=== PATIENT | male | born 1970 ===

== ENCOUNTER 2025-02-21 06:57 | Outpatient (CLI) | payer OTHER ==
[2025-02-21 07:49] LABS: BASO % 0.7 % (0.1-1.2); EOS # 0.13 (0.04-0.54); EOS % 1.8 % (0.7-7.0); LYMPH # 3.09 (1.18-3.74); LYMPH % 42.3 % (19.3-53.1); MEAN PLATELET VOLUME 9.40 fl (9.4-12.4); MONO # 0.73 (0.24-0.82); MONO % 10.0 % (4.7-12.5); NEUT # 3.29 (1.56-6.13); NEUT % 45.1 % (34.0-71.1); RED CELL DISTRIBUTION WIDTH 13.3 % (11.6-14.4)
[2025-02-21 07:57] LABS: URINE APPEARANCE Clear; URINE BILIRRUBIN Negative (NEGATIVE); URINE BLOOD Negative; URINE COLOR Dark Yellow; URINE GLUCOSE Negative (NEGATIVE); URINE LEUKOCYTE Negative; URINE NITRATE Negative; URINE PROTEIN Trace (NEGATIVE); URINE UROBILINOGEN 1.0 E.U./dl
[2025-02-21 08:00] LABS: URINE BACTERIA 53.7 uL (0.0-1933); URINE EPITHELIAL CELLS 5.9 uL (0.0-38.8); URINE WBC 5.8 uL (0.0-23.2)
[2025-02-21 08:09] LABS: URINE CAST 0.56 uL (0.0-1.40); URINE KETONE 40 (NEGATIVE); URINE RBC 1.6 uL (0.0-20.8)
[2025-02-21 08:36] LABS: ALT/SGPT 49.0 U/L (12-78); AST/SGOT 37.0 U/L (15-37); BILIRUBIN TOTAL 0.63 mg/dL (0.3-1.2); BUN CREA RATIO 21.0 (7.0-25.0); CHOL HDL RATIO 4.8 (0-5.0); CREATININE SERUM 0.75 mg/dL (0.70-1.30); GFR 107.34; GLOBULINA 3.1 G/DL (2.4-3.5); GLUCOSE FASTING 92.0 mg/dL (65-100); HDL 44.0 mg/dl (40-60); LDL 148.0 mg/dl (0-130); OSMOLALITY SERUM 284.0 MOSM/KG (275-295); PROSTATIC SPECIFIC ANTIGEN 0.248 NG/ML (0.010-4.00); T4 FREE 0.96 NG/ML (0.76-1.46); TSH 1.16 uIU/mL (0.358-3.74); VLDL 20.0 (0-39)
[2025-02-21 11:54] LABS: VITAMIN D3 25 HYDROXY 37.77 ng/ml (30-120)
[2025-02-22 12:07] LABS: hav igm Negative (Negative); hep b c Negative (Negative); hep b s ag Negative (Negative)
[2025-02-23 16:07] LABS: T T 530 ng/dL (264-916); test free 9.0 pg/mL (7.2-24.0)
== END 2025-02-21 07:14 | disposition home or self-care (01) ==
LOC: LAB 06:57
DX: M25.50 Pain in unspecified joint (principal); Z11.52 Encounter for screening for COVID-19; Z13.1 Encounter for screening for diabetes mellitus